=== PATIENT | male | born 1995 | race Hispanic/Latino ===

== ENCOUNTER 2018-11-10 12:26 | Emergency (ER) | payer OTHER ==
[~2018-11-10 12:26] MED LIST: ISOVUE-370 76%-LOCM 1 ML ONE
--- NOTE | 2018-11-10 13:03 | RAD ---
RADIOGRAPH CHEST 2 VIEW: DATE: 11/10/2018 TIME: 12:41 PM HISTORY: 23-year-old male with chest pain and palpitations COMPARISON: None available FINDINGS: Severe hyperinflation. Narrowing of cardiomediastinal silhouette. Subcutaneous emphysema right suprac lavicular region. Pneumomediastinum extending into lower neck. No pulmonary edema or airspace density. IMPRESSION: 1. Pneumomediastinum. 2. Severe hyperinflation.
[2018-11-10] MEDS ORDERED: Morphine 4 MG/ML VIAL ONE ×2 (13:33→15:38)
[2018-11-10] MEDS ORDERED: Ondansetron PF 4 MG/2 ML Vial ONE ×2 (13:33→15:38)
[2018-11-10 14:12] LABS: #Basophils 0.1 thou/uL (0.0-0.2); #Eosinphils 0.2 thou/uL (0.0-0.7); #Lymphocytes 1.7 thou/uL (1.20-3.40); #Monocytes 0.7 thou/uL (0.11-0.59); #Neutrophils 7.9 thou/uL (1.40-6.50); %Basophils 0.6 % (0.0-1.0); %Eosinophils 1.4 % (0.0-10.0); %Lymphocytes 16.2 % (21.0-51.0); %Monocytes 6.3 % (0.0-10.0); %Neutrophils 75.5 % (42.0-75.0); Mean Corpuscular HGB CONC 33.9 g/dL (32.0-36.0); Mean Corpuscular Hemoglobin 31.3 pg (27.0-31.0); Mean Corpuscular Volume 92.3 fL (78.0-98.0); Mean Platelet Volume 8.8 fL (7.4-10.4); Platelet Count 207 thou/uL (130-400); RBC Distribution Width 11.6 % (11.5-14.5); Red Blood Cell (RBC) Count 5.11 mill/uL (4.70-6.10); White Blood Cell (WBC) Count 10.4 thou/uL (4.8-10.8)
--- NOTE | 2018-11-10 14:12 | CT ---
CT Chest Abd Pelvis W Con History: Chest pain Comparison: None. Findings: There is subcutaneous emphysema in the neck soft tissues as well as within the mediastinum. No pneumothorax. No effusion. No pulmonary consolidation. Sternum and manubrium are intact. No acute displaced rib fracture. Liver is normal. Kidneys are normal. The aortoiliac contour is normal. No dilated loops of large or small bowel. No free intraperitoneal gas or fluid. The appendix is not d efinitively identified although there are no secondary signs of acute appendicitis. The kidneys are unremarkable. Spleen, liver, gallbladder are all normal as well as the pancreas. No acute osseous abnormality. Impression: Mild pneumomediastinum extending into the supraclavicular soft tissues.
[2018-11-10 14:32] LABS: ALT (SGPT) 20 U/L (8-55); AST (SGOT) 16 U/L (5-34); Albumin 5.6 g/dL (3.5-5.0); Alkaline Phosphatase 87 U/L (40-150); Anion Gap 15 mmol/L (10-20); BUN (Urea Nitrogen) 17 mg/dL (8.9-20.6); Bilirubin, Total 2.1 mg/dL (0.2-1.2); Calc. Creatinine Clearance 0 mL/min (70-130); Calcium 10.8 mg/dL (7.8-10.44); Carbon Dioxide 28 mmol/L (22-29); Chloride 99 mmol/L (98-107); Estimated GFR-MDRD Greater than 90; Globulin 3.2 g/dL (2.4-3.5); Glucose 75 mg/dL (70-105); Lipase 32 U/L (8-78); Potassium 3.7 mmol/L (3.5-5.1); Protein, Total 8.8 g/dL (6.0-8.3); Sodium 138 mmol/L (136-145)
[2018-11-10] MEDS ORDERED: Fentanyl 100 MCG/2 ML VIAL ONE (15:20)
[2018-11-10 16:19] LABS: Bilirubin Negative (Negative); Blood, Urine Negative (Negative); Glucose, Urine (Dipstick) Negative (Negative); Leukocyte Negative (Negative); Nitrite Negative (Negative); Protein, Urine (Dipstick) Negative (Neg-Trace); Urobilinogen 0.2 mg/dL (Less than 2)
[2018-11-10 16:25] LABS: Clarity Clear (Clear)
== END 2018-11-10 16:25 | disposition home or self-care (01) ==
LOC: ERS 12:26
DX: J98.2 Interstitial emphysema (principal)
CPT/HCPCS: 71045; 71260; 74177; 80053; 81003; 83690; 84484; 85025; 93005; 96361; 96374; 96375; J2270; J2405; J3010; Q9966